=== PATIENT | female | born 1960 | race Caucasian/White ===

== ENCOUNTER → 2017-02-07 | Outpatient (CLI) | payer BC ==
--- NOTE | 2017-02-09 18:53 | SLEEPHOME ---
DATE OF PROCEDURE: 02/07/2017 REFERRING PHYSICIAN: Collette Ambrosio Diagnostic home sleep testing was performed due to concern for the obstructive sleep apnea syndrome in this patient with a history of excessive somnolence, and nonrestorative sleep. For testing a NOX-T3 respiratory monitoring system was used. Continuous record was made of pulse, oxygen saturation, airflow, chest and abdominal strain and body position. 9 hours and 59 minutes of data were reviewed. There were 6 hours and 15 minutes of marked as time in bed. During the interval marked time in bed there were 230 respiratory events were identified of 10 seconds in duration or greater for a respiratory event index of 36.8. The events were primary obstructive. Baseline pulse rate was 68. Pulse rate range 54 to 91. Baseline oxygen saturation was 94%. Lowest oxygen saturation 79%. Testing was performed in both the supine and non-supine positions. IMPRESSION: Abnormal home sleep testing with repetitive respiratory events and oxygen desaturations to 79% with a respiratory event index of 36.8 is consistent with the obstructive sleep apnea syndrome. RECOMMENDATIONS: The patient should be encouraged to undergo formal sleep evaluation and in laboratory pressure titration given the severity of disease.
== END ==
LOC: M SLEEP HO 09:56
PROVIDERS: ATTEND Nurse Practitioner Adult Health
DX: G47.30 Sleep apnea, unspecified (principal)

== ENCOUNTER → 2017-04-11 | Outpatient (CLI) | payer BC ==
--- NOTE | 2017-04-11 09:47 | REPMRS ---
Patient History The patient states she had a clinical breast exam in 11/18 Patient is postmenopausal and is nulliparous. Family history of breast cancer in maternal grandmother. Digital Woman Screen Mammo: April 11, 2017 - Exam #: [id number] Bilateral CC and MLO view(s) were taken. Technologist: Yin Camejo, Technologist Prior study comparison: February 28, 2016, digital woman screen mammo performed at [facility]. April 07, 2014, digital woman screen mammo performed at [facility]. January 30, 2013, digital woman screen mammo performed at [facility]. FINDINGS: There are scattered fibroglandular densities. There has been no change in the appearance of the mammogram from the prior studies. There is a mild amount of scattered fibroglandular density which is fairly symmetric. There is no interval development of dominant mass, architectural distortion, or clustered microcalcification suggestive of malignancy. ASSESSMENT: BI-RADS/ACR category 1 mammogram. Negative. Recommendation Routine screening mammogram of both breasts in 1 year (for women over age 40). This patient's Lifetime Breast Cancer RIsk is estimated at 16 %. This mammogram was interpreted with the aid of an FDA-approved computer-aided dectection system. Electronically Signed By: Jefe Herrera MD 04/11/17 [id number]
== END ==
LOC: M WHC 08:34
PROVIDERS: ATTEND Family Medicine
DX: Z12.31 Encounter for screening mammogram for malignant neoplasm of breast (principal); Z78.0 Asymptomatic menopausal state

== ENCOUNTER → 2017-11-27 | Outpatient (REF) | payer BC ==
[2017-11-28 10:39] LABS: RUBELLA IgG QUALITATIVE IMMUNE (IMMUNE)
[2017-11-29 09:06] LABS: MUMPS VIRUS IgG ANTIBODY >300.0 AU/mL (Immune >10.9)
[2017-11-29 09:06] LABS: RUBEOLA IgG ANTIBODY >300.0 AU/mL (Immune >29.9)
== END ==
LOC: M LABDRAW1 15:38
DX: Z11.59 Encounter for screening for other viral diseases (principal)
CPT/HCPCS: 86762

== ENCOUNTER → 2018-05-01 | Outpatient (CLI) | payer BC | LOC: M WHC 09:02 | DX: Z12.31 Encounter for screening mammogram for malignant neoplasm of breast (principal) | CPT/HCPCS: 77067 ==

== ENCOUNTER → 2019-05-30 | Outpatient (REF) | payer BC | LOC: M PLALAB 16:00 | PROVIDERS: ATTEND Nurse Practitioner Family | DX: Z12.4 Encounter for screening for malignant neoplasm of cervix (principal) | CPT/HCPCS: 87624; G0123 ==

== ENCOUNTER → 2020-04-21 | Outpatient (CLI) | payer SELFPAY | LOC: M LABSMTC 13:01 | PROVIDERS: ATTEND Pediatrics | DX: Z20.828 Contact with and (suspected) exposure to other viral communicable diseases (principal) ==

== ENCOUNTER → 2021-05-26 | Outpatient (CLI) | payer OTHER, BC ==
--- NOTE | 2021-05-26 14:29 | REPMRS ---
Patient History The patient states she has not had a clinical breast exam in over a year. Patient is postmenopausal and is nulliparous. Family history of breast cancer in maternal grandmother, endometrial cancer at age 60 in mother. Tomosynthesis is performed. Volpara breast density is a. [facility] lifetime risk of breast cancer 14.6%. Patient states no breast complaints today. Patient has signed MRS History Sheet. Digital Woman Screen Mammo: May 26, 2021 - Exam #: [id number] Bilateral CC and MLO view(s) were taken. Technologist: Yin Camejo, Technologist Prior study comparison: May 01, 2018, bilateral digital woman screen mammo performed at [facility]. April 11, 2017, digital woman screen mammo performed at [facility]. FINDINGS: There are scattered fibroglandular densities. There has been no change in the appearance of the mammogram from the prior studies. There is a mild amount of residual fibroglandular tissue which is fairly symmetric. There is no interval development of dominant mass, architectural distortion, or clustered microcalcification suggestive of malignancy. Assessment: BI-RADS/ACR category 1 mammogram. Negative Mammogram. Recommendation Routine screening mammogram in 1 year (for women over age 40). This mammogram was interpreted with the aid of an FDA-approved computer-aided dectection system. Electronically Signed By: Cliff Wade MD 05/26/21 [id number]
== END ==
LOC: M WHC 13:18
PROVIDERS: ATTEND Family Medicine
DX: Z12.31 Encounter for screening mammogram for malignant neoplasm of breast (principal); Z78.0 Asymptomatic menopausal state; Z80.3 Family history of malignant neoplasm of breast

== ENCOUNTER → 2022-05-30 | Outpatient (CLI) | payer OTHER | LOC: M WHC 10:44 | PROVIDERS: ATTEND Nurse Practitioner Family | DX: Z12.31 Encounter for screening mammogram for malignant neoplasm of breast (principal) ==

== ENCOUNTER → 2023-05-31 | Outpatient (CLI) | payer OTHER ==
[~2023-05-31] MED LIST: ASHW500C PO; B-COTAB4 PO; MAGN200T PO; PROZ40CA PO; VITA-243 PO; VITA100093 PO; VITMTA PO
== END ==
LOC: M WHC 12:41
PROVIDERS: ATTEND Physician Assistant
DX: Z12.31 Encounter for screening mammogram for malignant neoplasm of breast (principal)

== ENCOUNTER → 2024-07-03 | Outpatient (CLI) | payer OTHER ==
[~2024-07-03] MED LIST changes: -B-COTAB4 PO; +VITA1TAB78 PO
== END ==
LOC: M WHC 10:37
PROVIDERS: ATTEND Physician Assistant Medical
DX: Z12.31 Encounter for screening mammogram for malignant neoplasm of breast (principal)

== ENCOUNTER 2024-07-22 09:02 | Observation (INO) | payer OTHER ==
[2024-07-22] VITALS (7 sets, daily range): BP systolic 122–149; BP diastolic 74–91; TEMP 96.4–98.4; O2SAT 94–98
[~2024-07-22] VITALS: Ht 170.2 cm; Wt 97.0 kg
[~2024-07-22 09:02] MED LIST changes: +SEMA2.4P SQ; +THERTAB52 PO
[2024-07-22] MEDS ORDERED: ROCURONIUM BROMIDE 50MG/5ML VIAL As Ordered ONE (09:49)
[2024-07-22] MEDS ORDERED: ONDANSETRON 4MG 2ML VIAL As Ordered ONE (09:49)
[2024-07-22] MEDS ORDERED: SUGAMMADEX SODIUM 500 MG/5 ML VIAL (BRIDION) As Ordered ONE (09:49)
[2024-07-22] MEDS ORDERED: propofoL 200 MG/20 ML VIAL As Ordered ONE (09:49)
[2024-07-22] MEDS ORDERED: LIDOCAINE 2% 100MG/5ML SDV (FOR ANES.) As Ordered ONE (09:49)
[2024-07-22] MEDS ORDERED: fentaNYL 250 MCG/5 ML INJECTION As Ordered ONE (09:59)
[2024-07-22] MEDS ORDERED: MIDAZOLAM INJ 2MG/2ML VIAL As Ordered ONE (09:59)
[2024-07-22] MEDS ORDERED: MAGN400T2 PO (10:12)
[2024-07-22] MEDS ORDERED: TRAZ-252 PO (10:12)
[2024-07-22] MEDS: LR 1,000 ML IV SCH ×3 (10:14→18:09)
[2024-07-22] MEDS ORDERED: HOME MED LIST COMPLETE! XX SCH (10:15)
[2024-07-22] MEDS: ceFAZolin SOD 2 GM in IV 1 EA IV ONE (11:54)
[2024-07-22] MEDS: HEPARIN SOD (PORCINE) 5000UNITS/ML 1ML VIAL/SYRINGE SQ ONE (12:00)
[2024-07-22] MEDS ORDERED: ACETAMINOPHEN 1000MG/100ML IV BAG As Ordered ONE (12:03)
[2024-07-22] MEDS: GENTAMICIN SULF 80MG/2ML VIAL As Ordered ONE (12:22)
[2024-07-22] MEDS: LIDOCAINE W/EPINEPHRINE 1% 20ML VIAL As Ordered ONE (12:23)
[2024-07-22] MEDS ORDERED: HYDROmorphone HCL 2MG/ML 1ML VIAL As Ordered ONE (12:57)
[2024-07-22] MEDS ORDERED: ePHEDrine SULFATE 25 MG/5 ML(5MG/ML) SYRINGE As Ordered ONE (15:05)
[2024-07-22] MEDS ORDERED: ONDANSETRON 4MG 2ML VIAL IV PRN ×2 (15:30→16:00)
[2024-07-22] MEDS ORDERED: traZODone 50 MG TAB PO PRN (15:30)
[2024-07-22] MEDS ORDERED: PERCOCET 5MG/325MG TAB PO PRN (15:30)
[2024-07-22] MEDS ORDERED: traMADol 50 MG TAB PO PRN (15:30)
[2024-07-22] MEDS: BUPivacaine LIPOSOME/PF 266MG 20ML VIAL (13.3MG/ML)(EXPAREL) As Ordered ONE (15:51)
[2024-07-22] MEDS ORDERED: fentaNYL 100 MCG/2 ML INJECTION IV PRN (16:00)
[2024-07-22] MEDS: ceFAZolin SOD 2 GM in IV 1 EA IV SCH (21:27)
[2024-07-22] MEDS: ACETAMINOPHEN 325 MG TAB PO PRN (21:32)
[2024-07-23 02:00] VITALS: BP 140/83; TEMP 97.7; O2SAT 94
[2024-07-23] MEDS: FLUoxetine 20MG CAP PO SCH (09:13)
[2024-07-23] MEDS: MAGNESIUM OXIDE 400MG TAB (MAG-OX) PO SCH (09:14)
[2024-07-23] MEDS: ASCORBIC ACID 500 MG TAB PO SCH (09:14)
[2024-07-23] MEDS: VITAMIN D 1,000 INTERNATIONAL UNITS TABLET PO SCH (09:14)
[2024-07-23 10:04] VITALS: BP 114/79; TEMP 97.5; O2SAT 98
[2024-07-23] MEDS ORDERED: TRAM50TA2 PO (10:27)
== END 2024-07-23 12:50 | disposition home or self-care (01) ==
LOC: M SDC 09:02 → M MS5PR 17:20
PROVIDERS: ADMIT Plastic Surgery Surgery of the Hand; ATTEND Plastic Surgery Surgery of the Hand
DX: N62 Hypertrophy of breast (principal); Z88.5 Allergy status to narcotic agent; G47.33 Obstructive sleep apnea (adult) (pediatric); Z79.899 Other long term (current) drug therapy
CPT/HCPCS: 19318; 88305; 96365; 96366; J0131; J0665; J0666; J0690; J1100; J1171; J1580; J2250; J2405; J3010

== ENCOUNTER → 2025-03-11 | Outpatient (REF) | payer OTHER ==
[~2025-03-11] MED LIST changes: +MAGN400T2 PO; +TRAM50TA2 PO; +TRAZ-252 PO
== END ==
LOC: M SFHCWAGY 10:13
PROVIDERS: ATTEND Nurse Practitioner Family
DX: Z12.4 Encounter for screening for malignant neoplasm of cervix (principal); Z11.51 Encounter for screening for human papillomavirus (HPV); Z01.419 Encounter for gynecological examination (general) (routine) without abnormal findings; Z77.9 Other contact with and (suspected) exposures hazardous to health